=== PATIENT | female | born 1990 | race Caucasian/White ===

== ENCOUNTER → 2019-04-23 | Outpatient (CLI) | payer OTHER ==
[2019-04-26 04:06] LABS: CHLAMYDIA TRACHOMATIS, NAA Negative (Negative); NEISSERIA GONORRHOEAE, NAA Negative (Negative)
[2019-04-28 15:06] LABS: HPV 16 Negative (Negative); HPV 18 Negative (Negative); HPV OTHER HR TYPES Positive (Negative)
== END ==
LOC: LAB SHORT 19:17 → LAB 19:17
PROVIDERS: Family Medicine
DX: Z01.419 Encounter for gynecological examination (general) (routine) without abnormal findings (principal)
CPT/HCPCS: 87491; 87591; 87624; 87625; G0123

== ENCOUNTER 2019-11-22 23:18 | Observation (INO) | payer OTHER ==
[~2019-11-22] VITALS: Ht 172.7 cm; Wt 89.0 kg
[2019-11-22] MEDS ORDERED: LORA1 PO (23:45)
[2019-11-22] MEDS ORDERED: LEVE500 PO (23:45)
[2019-11-22] MEDS ORDERED: BUSP5 PO (23:46)
[2019-11-22 23:48] LABS: BASOPHILS ABSOLUTE AUTO 0.08 K/mm3 (0.00-0.23); BASOPHILS PERCENT AUTO 1 % (0-2); EOSINOPHILS ABSOLUTE AUTO 0.01 K/mm3 (0.00-0.68); EOSINOPHILS PERCENT AUTO 0 % (0-6); Hemoglobin 12.8 g/dL (11.5-16.0); IMMATURE GRAN ABSOLUTE AUTO 0.05 K/mm3 (0.00-0.10); IMMATURE GRAN PERCENT AUTO 1 % (0-1); LYMPHOCYTES ABSOLUTE AUTO 0.98 K/mm3 (0.84-5.20); LYMPHOCYTES PERCENT AUTO 9 % (21-46); MONOCYTES ABSOLUTE AUTO 0.66 K/mm3 (0.16-1.47); MONOCYTES PERCENT AUTO 6 % (4-13); Mean Corpuscular HGB 36.2 pg (26.0-34.0); Mean Corpuscular HGB Conc 34.6 g/dL (31.5-36.5); Mean Corpuscular Volume 105 fL (80-100); Mean Platelet Volume 10.1 fL (9.1-12.4); NEUTROPHILS ABSOLUTE AUTO 9.18 K/mm3 (1.96-9.15); NEUTROPHILS PERCENT AUTO 84 % (41-73); Platelet Count 179 K/mm3 (150-400); RDW Coefficient Variation 12.3 % (11.7-14.2); RDW Standard Deviation 47.4 fL (35.1-46.3); Red Blood Cell Count 3.54 M/mm3 (3.80-5.20); White Blood Cell Count 10.96 K/mm3 (4.00-11.30)
[2019-11-23 00:07] LABS: Alanine Aminotransfer (ALT/SGP 223 U/L (12-78); Albumin, Blood 3.7 g/dL (3.4-5.0); Alk Phos 17 U/L (50-136); Anion Gap 18 mmol/L (6-16); Aspartate Aminotrans (AST/SGOT 476 U/L (12-37); Bilirubin, Total 2.2 mg/dL (0.1-1.0); Blood Urea Nitrogen 3 mg/dL (8-24); Bun/Creatinine Ratio 7.2 (12.0-20.0); CO2, Blood 20 mmol/L (21-32); Calcium, Blood 9.1 mg/dL (8.5-10.1); Chloride, Blood 96 mmol/L (98-108); Creatinine, Blood 0.41 mg/dL (0.40-1.00); Ethanol (Alcohol), Blood, Med <3 mg/dL; Globulin, Blood 3.8 g/dL (2.2-4.0); Glomerular Filtration Rate >60 (60-); Glucose, Blood 150 mg/dL (70-99); Potassium, Blood 3.2 mmol/L (3.5-5.5); Sodium, Blood 134 mmol/L (136-145); Total Protein, Blood 7.5 g/dL (6.4-8.2)
[2019-11-23 00:10] LABS: Magnesium, Blood 0.8 mg/dL (1.6-2.4)
[2019-11-23 02:12] LABS: Source, Urine Clean Catch
[2019-11-23 02:15] LABS: Bilirubin, Urine Neg (Neg); Blood, Urine Neg (Neg); Glucose Qualitative, Urine Neg (Neg); Ketones, Urine Neg (Neg); Leukocyte Esterase, Urine 1+ (Neg); Nitrite, Urine Neg (Neg); Protein, Urine 1+ (Neg); Urobilinogen, Urine 2+ (Normal)
[2019-11-23 02:16] LABS: Appearance, Urine Clear (Clear); Color, Urine Yellow (P-Yellow)
[2019-11-23 02:23] LABS: Bacteria Few /hpf; Red Blood Cells, Urine Not Seen /hpf (0-2); Squamous Epithelial Cells Few /hpf (Few)
[2019-11-23 02:32] LABS: U Amphetamine Screen Not Detected; U Barbituate Screen Not Detected; U Benzodiazapine Screen DETECTED; U Buprenorphine Screen Not Detected; U Cannabinoids Screen Not Detected; U Cocaine Screen Not Detected; U Methadone Screen Not Detected; U Methamphetamine Screen Not Detected; U Opiates Screen Not Detected; U Oxycodone Screen Not Detected; U Phencyclidine Screen Not Detected; U Propoxyphene Screen Not Detected
[2019-11-23] MEDS ORDERED: Zofran4 MG PO (03:15)
--- NOTE | 2019-11-23 07:25 | NUR ---
ASSUMPTION OF CARE PT ARRIVED TO ICU @ 0526 WITH ED RN VIA SABIHA. PT A&O x4, SLOW TO RESPOND, VISIBLE TREMORS BILAT UPPER EXTREMITIES. PT FIDGETING IN BED, REARRANGING TUBES/LINES/CORDS/BEDDING. 2G MAG IV INF STARTED IN ED, STILL INFUSING. NS @ 75ml/hr STARTED, ABX INITIATED AFTER MAG INFUSION COMPLETE. LS CLEAR T/O, PT ON RA. MONITOR SHOWS SINUS TACH, HR 100-110, SBP 120'S-140'S. PT VOIDING ON OWN WITH ASSISTANCE TO BEDPAN. PT STS LAST BM 11/22/19 WAS NORMAL, STS MOST RECENT OCCURENCE OF DIARRHEA WAS 3 DAYS AGO. PT STS WAS SEEING DR GOLDBERG NEUOROLOGIST BUT HE HAS RETIRED AND SHE HAS BEEN ON A WAIT LIST TO SEE A NEW NEUROLOGIST FOR OVER 1 YEAR, PT STS TAKES HOME NAUNRA ON REGULAR BASIS AT 0630 AND 1830 EACH DAY. REPORT GIVEN TO MICHELLE CERON.
--- NOTE | 2019-11-23 07:32 | NUR ---
ASSUMED CARE: REPORT RECEIVED FROM JOSE JUAN Brewer RN. ASSUMED CARE OF THIS PT AT APPROX 0700. ON ASSESSMENT, THE PT IS A&O TO SELF, FAMILY & FOLLOWING DIRECTIONS. SHE IS SOMEWHAT TREMULOUS & FIDGETING W/ CORDS & LINES, ALTHOUGH NOT PULLING ON THEM. LS ARE CLEAR T/O & PT ON RA W/ O2 SATS > 92%. MONITOR SHOWS ST W/ HR 100s, BP STABLE. PT STS LAST LOOSE STL WAS 3 DAYS AGO & SHE HAD A NORMAL STL YESTERDAY, DENIES NAUSEA CURRENTLY. VOIDS W/O DIFFICULTY USING BEDPAN & MINIMAL ASSIST. WILL CONTINUE TO MONITOR & UPDATE NEEDED.
--- NOTE | 2019-11-23 08:37 | NUR ---
DR LEE: PROVIDER AT BEDSIDE TO EVAL PT. NOTIFIED HIM OF PT's STATUS & OF PENDING ABD U/S OF RUQ. ALSO INFORMED OF PT NOT HAVING LOOSE STLS FOR 3 DAYS & HE STS TO KEEP GI PANEL ORDERED FOR NOW. NO CHANGES AT THIS TIME. WILL CONTINUE TO MONITOR & UPDATE NEEDED.
[2019-11-23] MEDS ORDERED: NEXPLANON68 MG SC (09:15)
[2019-11-23 11:05] LABS: Magnesium, Blood 2.5 mg/dL (1.6-2.4)
[2019-11-23 11:22] LABS: Anion Gap 8 mmol/L (6-16); Blood Urea Nitrogen 2 mg/dL (8-24); Bun/Creatinine Ratio 3.9 (12.0-20.0); CO2, Blood 23 mmol/L (21-32); Calcium, Blood 8.6 mg/dL (8.5-10.1); Chloride, Blood 105 mmol/L (98-108); Creatinine, Blood 0.52 mg/dL (0.40-1.00); Glomerular Filtration Rate >60 (60-); Glucose, Blood 88 mg/dL (70-99); Potassium, Blood 5.4 mmol/L (3.5-5.5); Sodium, Blood 136 mmol/L (136-145)
--- NOTE | 2019-11-23 12:57 | NUR ---
TRANSFER TO [facility] FLOOR: REPORT HAS BEEN GIVEN TO RN TO ASSUME CARE. PT HAS BEEN TRANSFERRED TO RM 358, ALL BELONGINGS & CHART HAVE ALSO BEEN TRANSFERRED. PT's MOTHER IS W/ PT ON TRANSFER. 1300 DOSE OF KEPPRA ALSO TAKEN UP W/ PT. TIME OF TRANSFER 1255.
--- NOTE | 2019-11-23 14:05 | NUR ---
PT ARRIVED TO UNIT FROM ICU A&OX3. REPORTS "SORE" ALL OVER FROM SEIZURE, RATING 5/10. SMALL AMOUNT BLEEDING FROM TONGUE. LCA. RESPIRATIONS EASY ON RA. HRR. ESSENTIAL TREMORS NOTES TO EXTREMITIES. DENIES ANY NEEDS AT THIS TIME. IV FLUIDS INFUSING PER ORDERS. CALL LIGHT IN REACH. MOTHER AND THERAPY DOG AT BEDSIDE.
--- NOTE | 2019-11-23 14:46 | NUR ---
TELE NSR @ [facility] AT 86.
--- NOTE | 2019-11-23 17:22 | NUR ---
SUMMARY NO ACUTE CHANGES SINCE TRANSFERRING TO UNIT FROM ICU. HAS SLEPT OFF AND ON SINCE ARRIVING TO UNIT. VOIDING TEA COLORED URINE. IV FLUIDS INFUSING W/O DIFFICULTY. PT HAS ESSENTIAL TREMORS WHICH PT'S MOTHER REPORTS ARE CURRENTLY MORE PRONOUNCED THAN NORMAL. CALL LIGHT IN REACH.
[2019-11-23 18:55] LABS: Adenovirus Not Detected (NOT DETECT); Bordetella pertussis Not Detected (NOT DETECT); Chlamydophila pneumoniae Not Detected (NOT DETECT); Coronavirus 229E Not Detected (NOT DETECT); Coronavirus HKU1 Not Detected (NOT DETECT); Coronavirus NL63 Not Detected (NOT DETECT); Coronavirus OC43 Not Detected (NOT DETECT); Human Metapneumovirus Not Detected (NOT DETECT); Human Rhinovirus/Enterovirus Not Detected (NOT DETECT); Influenza A Not Detected (NOT DETECT); Influenza A/2009-H1 Not Detected (NOT DETECT); Influenza A/H1 Not Detected (NOT DETECT); Influenza A/H3 Not Detected (NOT DETECT); Influenza B Not Detected (NOT DETECT); Mycoplasma pneumoniae Not Detected (NOT DETECT); Parainfluenza Virus 1 Not Detected (NOT DETECT); Parainfluenza Virus 2 Not Detected (NOT DETECT); Parainfluenza Virus 3 Not Detected (NOT DETECT); Parainfluenza Virus 4 Not Detected (NOT DETECT); Respiratory Syncytial Virus Not Detected (NOT DETECT)
--- NOTE | 2019-11-23 22:21 | NUR ---
IV INSERTION 20 ZOYA IV ISERTED INTO PATIENT'S LEFT HAND AT 1999. FLUSHED WITH 20 ML OF NS. PATIENT TOLERATED WELL.
--- NOTE | 2019-11-24 01:54 | NUR ---
PHYSICIAN COMMUNICATION CONTACTED THE [employer] PHYSICIAN TO LET HER KNOW THAT THE PATIENT WAS REQUESTING TO BE PLACED ON A SOFT DIET DUE TO BITING HER TONGUE DURING A RECENT SEIZURE. DR. MORENO SAID THE ORDER COULD BE PUT INTO PLACE.
--- NOTE | 2019-11-24 06:08 | NUR ---
RECEIVED A CALL FROM [facility]AM AND THEY CONFIRMED THAT IF THE PATIENT HADN'T HAD A BM BY 0600 11/24 THEN THE GI PANEL COULD BE CANCELLED AND SHE COULD BE DISCONTINUED FROM PRECAUTIONS.
[2019-11-24 06:20] LABS: Hematocrit 39.1 % (33.0-51.0); Hemoglobin 13.2 g/dL (11.5-16.0); Mean Corpuscular HGB 36.4 pg (26.0-34.0); Mean Corpuscular HGB Conc 33.8 g/dL (31.5-36.5); Mean Platelet Volume 10.4 fL (9.1-12.4); Platelet Count 135 K/mm3 (150-400); RDW Coefficient Variation 12.6 % (11.7-14.2); RDW Standard Deviation 49.6 fL (35.1-46.3); Red Blood Cell Count 3.63 M/mm3 (3.80-5.20); White Blood Cell Count 5.57 K/mm3 (4.00-11.30)
[2019-11-24 06:21] LABS: Mean Corpuscular Volume 108 fL (80-100)
--- NOTE | 2019-11-24 06:23 | NUR ---
SHIFT SUMMARY PATIENT ALERT AND ORIENTED. SHE SLEPT WELL ALL NIGHT. PATIENT HAD NO SEIZURES DURING THE SHIFT. SHE HAS BEEN REMOVED FROM ISOLATION DUE TO NOT HAVING A BM FOR OVER 24 HOURS. IV PATENT AND FLUSHED. BED IN LOWEST POSITION WITH WHEELS LOCKED. CALL LIGHT AND BELONGINGS WITHIN REACH. REPORT GIVEN TO ONCOMING JIE.
[2019-11-24 06:39] LABS: Alanine Aminotransfer (ALT/SGP 152 U/L (12-78); Albumin/Globulin Ratio 0.8 (0.8-1.8); Alk Phos 14 U/L (50-136); Anion Gap 9 mmol/L (6-16); Aspartate Aminotrans (AST/SGOT 250 U/L (12-37); Bilirubin, Total 1.9 mg/dL (0.1-1.0); Blood Urea Nitrogen 3 mg/dL (8-24); Bun/Creatinine Ratio 5.6 (12.0-20.0); CO2, Blood 23 mmol/L (21-32); Calcium, Blood 8.8 mg/dL (8.5-10.1); Chloride, Blood 108 mmol/L (98-108); Creatinine, Blood 0.54 mg/dL (0.40-1.00); Globulin, Blood 3.7 g/dL (2.2-4.0); Glomerular Filtration Rate >60 (60-); Glucose, Blood 84 mg/dL (70-99); Sodium, Blood 140 mmol/L (136-145); Total Protein, Blood 6.7 g/dL (6.4-8.2)
[2019-11-24 06:42] LABS: Potassium, Blood 3.3 mmol/L (3.5-5.5)
[2019-11-24] MEDS ORDERED: Keppra750 MG PO (11:16)
[2019-11-24] MEDS ORDERED: LIDO5TO TOP (11:18)
--- NOTE | 2019-11-24 11:43 | NUR ---
1130 PT TO DISCHARGE HOME WITH HER MOTHER. IV REMOVED NO SS OF INFECTION NOTED. NURSE WENT OVER NEW MEDS WITH PATIENT AND MED LIST FAXED INTO PHARMACY . PATIENT TOLD TO FOLLOW UP WITH PCP AND NEUROLOGIST. PATIENT WALKED OUT WITH NURSE AND WAS DRIVEN HOME BY MOTHER.
== END 2019-11-24 11:32 | disposition home or self-care (01) ==
LOC: ER 23:18 → MEDS 23:19 → ICUW 11-23 05:27 → MEDS 11-23 05:27 → ER 11-23 05:27 → ICUE 11-23 05:36 → ICUW 11-23 05:36 → ICUE 11-23 12:59 → MEDS 11-23 12:59
PROVIDERS: Emergency Medicine; Internal Medicine; ADMIT Internal Medicine
DX: R56.9 Unspecified convulsions (principal); R11.2 Nausea with vomiting, unspecified; E83.42 Hypomagnesemia; R79.89 Other specified abnormal findings of blood chemistry; F41.9 Anxiety disorder, unspecified; R16.0 Hepatomegaly, not elsewhere classified; K76.0 Fatty (change of) liver, not elsewhere classified; Z79.899 Other long term (current) drug therapy
CPT/HCPCS: 0099U; 36415; 70450; 76705; 80048; 80053; 81001; 81025; 83735; 85025; 85027; 87086; 90686; 96365; 96366; 96367; 96372; 96375; 96376; 99285-25; G0008; G0378; G0480; J0696; J1650; J1953; J2060; J2405; J2550; J3475; J7030

== ENCOUNTER 2020-02-18 15:56 | Emergency (ER) | payer OTHER ==
[~2020-02-18] VITALS: Ht 172.7 cm; Wt 86.2 kg
[~2020-02-18 15:56] MED LIST: BUSP5 PO; Keppra750 MG PO; LEVE500 PO; LIDO5TO TOP; LORA1 PO; NEXPLANON68 MG SC; Zofran4 MG PO
[2020-02-18 17:46] LABS: BASOPHILS ABSOLUTE AUTO 0.05 K/mm3 (0.00-0.23); BASOPHILS PERCENT AUTO 1 % (0-2); EOSINOPHILS PERCENT AUTO 0 % (0-6); Hematocrit 43.5 % (33.0-51.0); Hemoglobin 15.1 g/dL (11.5-16.0); IMMATURE GRAN ABSOLUTE AUTO 0.03 K/mm3 (0.00-0.10); IMMATURE GRAN PERCENT AUTO 1 % (0-1); LYMPHOCYTES ABSOLUTE AUTO 1.61 K/mm3 (0.84-5.20); LYMPHOCYTES PERCENT AUTO 26 % (21-46); MONOCYTES ABSOLUTE AUTO 0.33 K/mm3 (0.16-1.47); MONOCYTES PERCENT AUTO 5 % (4-13); Mean Corpuscular HGB 34.4 pg (26.0-34.0); Mean Corpuscular HGB Conc 34.7 g/dL (31.5-36.5); Mean Corpuscular Volume 99 fL (80-100); Mean Platelet Volume 9.3 fL (9.1-12.4); NEUTROPHILS ABSOLUTE AUTO 4.23 K/mm3 (1.96-9.15); NEUTROPHILS PERCENT AUTO 68 % (41-73); Platelet Count 249 K/mm3 (150-400); RDW Coefficient Variation 12.6 % (11.7-14.2); RDW Standard Deviation 46.6 fL (35.1-46.3); Red Blood Cell Count 4.39 M/mm3 (3.80-5.20); White Blood Cell Count 6.25 K/mm3 (4.00-11.30)
[2020-02-18 18:13] LABS: Alanine Aminotransfer (ALT/SGP 102 U/L (12-78); Albumin, Blood 3.8 g/dL (3.4-5.0); Alk Phos 20 U/L (50-136); Anion Gap 13 mmol/L (6-16); Aspartate Aminotrans (AST/SGOT 162 U/L (12-37); Bilirubin, Total 0.7 mg/dL (0.1-1.0); Blood Urea Nitrogen 9 mg/dL (8-24); CO2, Blood 20 mmol/L (21-32); Calcium, Blood 8.3 mg/dL (8.5-10.1); Chloride, Blood 103 mmol/L (98-108); Creatinine, Blood 0.45 mg/dL (0.40-1.00); Globulin, Blood 3.8 g/dL (2.2-4.0); Glomerular Filtration Rate >60 (60-); Glucose, Blood 116 mg/dL (70-99); Potassium, Blood 3.4 mmol/L (3.5-5.5); Salicylate <1.7 mg/dL (2.8-20.0); Sodium, Blood 136 mmol/L (136-145); Total Protein, Blood 7.6 g/dL (6.4-8.2)
[2020-02-18 18:14] LABS: Acetaminophen, Random <2.0 ug/mL (10.0-30.0); Ethanol (Alcohol), Blood, Med 304 mg/dL
== END 2020-02-18 19:40 | disposition home or self-care (01) ==
LOC: ER 15:56
PROVIDERS: Physician Assistant
DX: F10.129 Alcohol abuse with intoxication, unspecified (principal); F41.9 Anxiety disorder, unspecified; Z79.899 Other long term (current) drug therapy; Y90.8 Blood alcohol level of 240 mg/100 ml or more
CPT/HCPCS: 36415; 80053; 85025; 99284; G0480

== ENCOUNTER → 2022-07-19 | Outpatient (CLI) | payer OTHER ==
[2022-07-23 15:08] LABS: CHLAMYDIA TRACHOMATIS, NAA Negative (Negative); HPV 16 Negative (Negative); HPV 18 Negative (Negative); HPV OTHER HR TYPES Positive (Negative)
== END | disposition home or self-care (01) ==
LOC: LAB 19:13 → LAB SHORT 19:13
PROVIDERS: Family Medicine
DX: Z00.00 Encounter for general adult medical examination without abnormal findings (principal)
CPT/HCPCS: 87491; 87591; 87624; 88142